=== PATIENT | male | born 1985 | race African-American/Black ===

== ENCOUNTER 2017-11-13 14:02 | Emergency (ER) | payer OTHER ==
[~2017-11-13] VITALS: Ht 177.8 cm; Wt 111.1 kg
[2017-11-13 14:06] VITALS: BP 121/78
--- NOTE | 2017-11-13 14:09 | ED GI/GU/ABDOMINAL COMPLAINT ---
History of Present Illness General Chief Complaint: General Adult Stated Complaint: STD CHECK Source: patient Exam Limitations: no limitations Vital Signs & Intake/Output Vital Signs & Intake/Output Vital Signs Date Time Temp Pulse Resp B/P B/P Pulse O2 O2 Flow FiO2 Mean Ox Delivery Rate 11/13 1406 98.0 96 18 121/78 95 Room Air Room Air Allergies Coded Allergies: No Known Allergies (05/26/16) Reconcile Medications No Known Home Medications Triage Note: TRIAGE: 32 Y/O MALE PRESENTS FOR STC CHECK - DENIES PENILE DISCHARGE, DENIES PAIN. UNPROTECTED SEX, UNSURE IF PARTNER HAD ANY DISEASES. HISTORY OF CHLAMIDIA. Triage Nurses Notes Reviewed? yes Onset: Gradual Duration: constant Timing: recent history Quality/Severity: mild Severity Numbers: 1 Radiation: no radiation HPI: Patient's 32-year-old male with past medical history of STDs who presents to emergency room stating that he had another female give him oral sex yesterday and since she's been having "hypochondriac" symptoms where he believes that he may have an STD. Patient denies any fever chills abdominal pain nausea vomiting testicular swelling urethral discharge skin irritation or lesions or bumps. Patient was requesting STD check. (Rajiv Boss) Past History Travel History Traveled to [place] past 21 day No Medical History Any Pertinent Medical History? none Neurological: NONE EENT: NONE Cardiovascular: NONE Respiratory: NONE Gastrointestinal: NONE Hepatic: NONE Renal: NONE Musculoskeletal: NONE Psychiatric: NONE Endocrine: NONE Blood Disorders: NONE Cancer(s): NONE VP RHEUMATOLOGY/Reproductive: [id number] Surgical History Surgical History: non-contributory Psychosocial History What is your primary language Senegalese Tobacco Use: Current Daily Use Daily Tobacco Use Amount/Type: => 5 Cigarettes daily ETOH Use: occasional use Illicit Drug Use: denies illicit drug use Family History Hx Contributory? No (Rajiv Boss) Review of Systems Review of Systems Constitutional: Reports: no symptoms. EENTM: Reports: no symptoms. Respiratory: Reports: no symptoms. Cardiovascular: Reports: no symptoms. GI: Reports: no symptoms. Genitourinary: Reports: no symptoms. Musculoskeletal: Reports: no symptoms. Skin: Reports: no symptoms. Neurological/Psychological: Reports: no symptoms. Hematologic/Endocrine: Reports: no symptoms. Immunologic/Allergic: Reports: no symptoms. All Other Systems: Reviewed and Negative (Rajiv Boss) Physical Exam Physical Exam General Appearance: no apparent distress, alert Head: atraumatic Eyes: Bilateral: normal appearance. Ears, Nose, Throat, Mouth: hearing grossly normal Gastrointestinal: normal bowel sounds, soft Male Genitals: PATIENT DECLINE EVALUATION IN ER Neurologic/Psych: no motor/sensory deficits Skin: intact, normal color Core Measures ACS in differential dx? No Sepsis Present: No Sepsis Focused Exam Completed? No (Rajiv Boss) Progress Differential Diagnosis: SBO, STD, testicular torsion, ureterolithiasis, urinary retention, urethritis, UTI/pyelo Plan of Care: Orders Procedure Date/time Status CULTURE,URINE 11/14 1403 Active CHLAMYDIA-GC DNA PROBE 11/14 1403 Active URINALYSIS 11/13 140 Complete Laboratory Tests 11/13/17 1424: Urinalysis LIGHT H, Urine Color YEL, Urine Clarity CLEAR, Urine pH 6.0, Ur Specific [place] >= 1.030, Urine Protein TRACE H, Urine Ketones TRACE H, Urine Nitrite NEG, Urine Bilirubin NEG, Urine Urobilinogen 0.2, Ur Leukocyte Esterase NEG, Ur Microscopic SEDIMENT EXAMINED, Urine RBC 1-3, Urine WBC RARE, Ur Epithelial Cells RARE, Urine Bacteria RARE H, Urine Mucus MOD H, Urine Hemoglobin NEG, Urine Glucose NEG Microbiology 11/13 142 URINE ROUT: GC DNA Probe - RECD 11/14 1423 URINE ROUT: Chlamydia DNA Probe (DUSTIN) - RECD 11/14 1423 URINE ROUT: Urine Culture - RECD Patient on initial presentation is resting comfortably at bedside patient denies any symptoms patient declined exam. Urinalysis will be obtained culture will be sent for gonorrhea and chlamydia. Patient requested "can I just get the shot and pill"" Patient has nontender abdomen and is asymptomatic Initial ED EKG: none (Rajiv Boss) Departure Departure Disposition: HOME OR SELF CARE Condition: Stable Clinical Impression Primary Impression: STD (male) Referrals: Patient Has No Primary Care Dr (PCP/Family) Additional Instructions: As discussed DO NOT PARTICIPATE IN sexual activities for 2 weeks, call the emergency room in 2 days for results of your tests. If symptoms worsen return to emergency room, always use prophylactic condoms when performing sexual activities. Departure Forms: Customer Survey General Discharge Information Prescriptions: Current Visit Scripts No Known Home Medications (Rajiv Boss) PA/MANAGER FLEET Co-Sign Statement Statement: ED Attending supervision documentation- I saw and evaluated the patient. I have also reviewed all the pertinent lab results and diagnostic results. I agree with the findings and the plan of care as documented in the PA's/MANAGER FLEET's documentation. x I have reviewed the ED Record and agree with the PA's/MANAGER FLEET's documentation. [] Additions or exceptions (if any) to the PAs/MANAGER FLEET's note and plan are summarized below: [] (Amanda BELL,Edvin)
== END 2017-11-13 14:36 ==
LOC: ERH 14:02
DX: A64 Unspecified sexually transmitted disease (principal)
CPT/HCPCS: 81001; 87086; 87491; 87591; 96372; J0696